=== PATIENT | female | born 1985 | race American Indian/Alaskan Native ===

== ENCOUNTER 2019-04-18 21:14 | Emergency (ER) | payer BC, MEDICAID ==
[~2019-04-18] VITALS: Ht 172.7 cm; Wt 91.0 kg
[2019-04-18] MEDS ORDERED: HYDROCODONE/ACETAMINOPHEN 5/325MG TABLET PO ONE (22:45)
[2019-04-18 23:14] LABS: BASOPHILS % 1.1 % (0.0-2.0); EOSINOPHILS % 2.1 % (0.0-5.0); HEMATOCRIT. 38.7 % (36.0-48.0); HEMOGLOBIN. 12.8 g/dL (12.0-16.0); LYMPHOCYTES % 35.1 % (20.0-50.0); MEAN CORPUSCULAR HEMOGLOBIN 27.4 pg (28.0-32.0); MEAN PLATELET VOLUME 8.6 fl (7.4-10.4); NEUTROPHILS % 55.7 % (40.0-76.0); PLATELET 230 x1000/uL (130-400); RED BLOOD CELL COUNT 4.66 mill/uL (4.2-5.4)
[2019-04-18 23:20] LABS: CHLORIDE 105 mEq/L (98-107)
[2019-04-18 23:21] LABS: CLARITY URINE CLEAR (CLEAR); COLOR URINE YELLOW (YELLOW); KETONES URINE TRACE (NEGATIVE); LEUKOCYTE ESTERASE URINE NEGATIVE (NEGATIVE); NITRITE URINE NEGATIVE (NEGATIVE); OCCULT BLOOD URINE NEGATIVE (NEGATIVE); PH URINE 5.5 (4.5-8.0); PROTEIN URINE NEGATIVE (NEGATIVE); SPECIFIC GRAVITY URINE 1.022 (1.005-1.030); UROBILINOGEN URINE 0.2 E.U./dL (0.2-1.0)
[2019-04-19] MEDS ORDERED: IBUPROFEN 600MG TABLET PO ONE (01:30)
[2019-04-19 01:32] VITALS: BP 130/88
== END 2019-04-19 01:41 | disposition home or self-care (01) ==
LOC: ER 22:00
DX: S39.011A Strain of muscle, fascia and tendon of abdomen, initial encounter (principal); S50.01XA Contusion of right elbow, initial encounter; V43.62XA Car passenger injured in collision with other type car in traffic accident, initial encounter; Y93.9 Activity, unspecified; Y92.410 Unspecified street and highway as the place of occurrence of the external cause; I10 Essential (primary) hypertension
CPT/HCPCS: 36415; 73080; 74176; 80053; 81003; 81025; 83690; 85025; 85610; 99284; Z7610

== ENCOUNTER 2019-10-12 17:57 | Inpatient (IN) | payer MEDICAID ==
[~2019-10-12] VITALS: Ht 172.7 cm; Wt 100.7 kg
[2019-10-12] MEDS ORDERED: nyquil (18:40)
[2019-10-12] MEDS ORDERED: SODIUM CHLORIDE 0.9% 1000ML BAG (SEPSIS BOLUS) IV ONE (22:00)
[2019-10-12 22:53] LABS: BASOPHILS % 0.6 % (0.0-2.0); HEMATOCRIT. 38.3 % (36.0-48.0); HEMOGLOBIN. 12.4 g/dL (12.0-16.0); LYMPHOCYTES % 21.8 % (20.0-50.0); MEAN CORPUSCULAR HEMOGLOBIN 26.7 pg (28.0-32.0); MEAN CORPUSCULAR VOLUME 82.3 fL (81.0-99.0); MEAN PLATELET VOLUME 8.7 fl (7.4-10.4); MONOCYTES % 6.7 % (2.0-8.0); NEUTROPHILS % 70.9 % (40.0-76.0); PLATELET 167 x1000/uL (130-400); RED BLOOD CELL COUNT 4.65 mill/uL (4.2-5.4); RED CELL DISTRIBUTION WIDTH 13.9 % (11.6-14.6)
[2019-10-12 22:54] LABS: CHLORIDE 107 mEq/L (98-107); INR 1.1; PROTHROMBIN TIME 11.6 sec (9.6-11.0)
[2019-10-12] MEDS ORDERED: KETOROLAC 30MG/ML VIAL IV ONE (23:00)
[2019-10-12] MEDS ORDERED: ONDANSETRON HCL 4MG/2ML INJ IV ONE (23:00)
[2019-10-12 23:08] LABS: CLARITY URINE CLOUDY (CLEAR); COLOR URINE YELLOW (YELLOW); KETONES URINE 2+ (NEGATIVE); LEUKOCYTE ESTERASE URINE NEGATIVE (NEGATIVE); NITRITE URINE NEGATIVE (NEGATIVE); OCCULT BLOOD URINE NEGATIVE (NEGATIVE); PROTEIN URINE 2+ (NEGATIVE); SPECIFIC GRAVITY URINE 1.029 (1.005-1.030); UROBILINOGEN URINE 0.2 E.U./dL (0.2-1.0)
[2019-10-12] MEDS ORDERED: ACETAMINOPHEN 650MG/20.3ML UDC PO NR (23:30)
[2019-10-12] MEDS ORDERED: OSELTAMIVIR 75MG CAPSULE PO ONE (23:30)
[2019-10-13] MEDS ORDERED: MORPHINE SULFATE 2 MG/ML CPJ (NOT FOR IM USE) IV ONE (02:30)
[2019-10-13] MEDS ORDERED: POTASSIUM CHLORIDE 20MEQ TABLET SR PO NR (02:30)
[2019-10-13 03:40] VITALS: BP 127/83
[2019-10-13 04:00] VITALS: BP 127/83
[2019-10-13] MEDS ORDERED: IBUP-2029 MT (04:41)
[2019-10-13] MEDS: SODIUM CHLORIDE 0.9% 1,000 ML IV SCH ×2 (06:24→15:39)
[2019-10-13 08:00] VITALS: BP 130/79
[2019-10-13] MEDS ORDERED: LOSA50TA41 PO (08:47)
[2019-10-13] MEDS: GUAIFENESIN-DM 200MG-20MG/10ML UDC PO PRN ×2 (09:07→18:15)
[2019-10-13] MEDS: LOSARTAN POTASSIUM 50 MG TABLET PO SCH (09:20)
[2019-10-13] MEDS: ACETAMINOPHEN 325MG TABLET PO PRN ×2 (11:49→18:12)
[2019-10-13 12:00] VITALS: BP 132/93
[2019-10-13 16:07] VITALS: BP_SYST 119; BP_SYST 132; BP_DIAS 79; BP_DIAS 93
[2019-10-13 20:00] VITALS: BP 122/78
[2019-10-13] MEDS: OSELTAMIVIR 75MG CAPSULE PO SCH (23:22)
[2019-10-14] VITALS: BP 128/78
[2019-10-14 04:00] VITALS: BP 124/71
[2019-10-14] MEDS: SODIUM CHLORIDE 0.9% 1,000 ML IV SCH ×2 (06:56→16:29)
[2019-10-14] MEDS: ACETAMINOPHEN 325MG TABLET PO PRN (06:57)
[2019-10-14] MEDS: GUAIFENESIN-DM 200MG-20MG/10ML UDC PO PRN ×2 (06:57→23:39)
[2019-10-14 07:51] LABS: EOSINOPHILS % 0.3 % (0.0-5.0); HEMATOCRIT. 36.7 % (36.0-48.0); HEMOGLOBIN. 12.1 g/dL (12.0-16.0); LYMPHOCYTES % 45.1 % (20.0-50.0); MEAN CORPUSCULAR HEMOGLOBIN 27.2 pg (28.0-32.0); MEAN CORPUSCULAR VOLUME 82.6 fL (81.0-99.0); MEAN PLATELET VOLUME 8.7 fl (7.4-10.4); MONOCYTES % 7.1 % (2.0-8.0); NEUTROPHILS % 46.5 % (40.0-76.0); PLATELET 158 x1000/uL (130-400); RED BLOOD CELL COUNT 4.44 mill/uL (4.2-5.4); RED CELL DISTRIBUTION WIDTH 14.3 % (11.6-14.6)
[2019-10-14 07:56] LABS: CHLORIDE 110 mEq/L (98-107)
[2019-10-14 08:00] VITALS: BP 125/83
[2019-10-14] MEDS: LOSARTAN POTASSIUM 50 MG TABLET PO SCH (08:36)
[2019-10-14] MEDS ORDERED: OSELTAMIVIR 75MG CAPSULE PO SCH (09:00)
[2019-10-14 12:00] VITALS: BP 100/54
[2019-10-14] MEDS: OSELTAMIVIR 75MG CAPSULE PO SCH ×2 (12:15→23:39)
[2019-10-14 16:00] VITALS: BP 138/79
[2019-10-14] MEDS: ONDANSETRON HCL 4MG/2ML INJ IV PRN (16:23)
[2019-10-14] MEDS: KETOROLAC 30MG/ML VIAL IV SCH ×2 (16:29→23:45)
[2019-10-14 20:00] VITALS: BP 136/90
[2019-10-14] MEDS ORDERED: KETOROLAC 30MG/ML VIAL IV SCH (22:00)
[2019-10-15] VITALS: BP 124/89
[2019-10-15] MEDS: ONDANSETRON HCL 4MG/2ML INJ IV PRN (03:50)
[2019-10-15 04:00] VITALS: BP 133/90
[2019-10-15] MEDS: GUAIFENESIN-DM 200MG-20MG/10ML UDC PO PRN (06:54)
[2019-10-15 08:00] VITALS: BP 125/80
[2019-10-15] MEDS: SODIUM CHLORIDE 0.9% 1,000 ML IV SCH (09:10)
[2019-10-15] MEDS: KETOROLAC 30MG/ML VIAL IV SCH ×2 (09:14→17:30)
[2019-10-15] MEDS: LOSARTAN POTASSIUM 50 MG TABLET PO SCH (09:14)
[2019-10-15] MEDS: OSELTAMIVIR 75MG CAPSULE PO SCH (10:21)
[2019-10-15 12:00] VITALS: BP 121/87
[2019-10-15 16:00] VITALS: BP 122/73
[2019-10-15 19:48] VITALS: BP 122/73
[2019-10-16 08:07] LABS: HIV SCREEN 4G Non Reactive (Non Reactive)
== END 2019-10-15 20:08 | disposition home or self-care (01) | DRG 720 ==
LOC: ER 17:57 → 5WST 10-13 02:25 → EDBEDREQSVC 10-13 02:32 → EDBEDREQ 10-13 02:32 → EDBEDREQTM 10-13 02:32 → ENRESERV 10-13 03:06
PROVIDERS: ADMIT Internal Medicine; ATTEND Internal Medicine
DX: A41.9 Sepsis, unspecified organism (principal); E44.1 Mild protein-calorie malnutrition; E87.6 Hypokalemia; J10.1 Influenza due to other identified influenza virus with other respiratory manifestations; I10 Essential (primary) hypertension; Z79.899 Other long term (current) drug therapy
CPT/HCPCS: 36415; 71045; 80048; 80053; 81003; 83605; 84145; 84484; 85025; 87389; 87804; 93005; 96361; 96374; 96375; 99291; J1885; J2405; J7030

== ENCOUNTER → 2020-05-23 | Outpatient (CLI) | payer MEDICAID ==
[~2020-05-23] MED LIST: ASCO100T12 PO; HYDROMORPHONE HCL/PF 2MG/ML CPJ IV PRN; IBUP-2029 MT; LOSA50TA41 PO; OMEP20TA2 PO
== END | disposition home or self-care (01) ==
LOC: LAB 10:18
PROVIDERS: ATTEND Obstetrics & Gynecology
DX: Z01.818 Encounter for other preprocedural examination (principal); Z11.59 Encounter for screening for other viral diseases
CPT/HCPCS: C9803; U0003

== ENCOUNTER 2020-05-26 06:00 | Day surgery (SDC) | payer MEDICAID ==
[~2020-05-26] VITALS: Ht 172.7 cm; Wt 94.8 kg
[~2020-05-26 06:00] MED LIST changes: -ASCO100T12 PO; -HYDROMORPHONE HCL/PF 2MG/ML CPJ IV PRN; -OMEP20TA2 PO
[2020-05-26 09:34] LABS: BASOPHILS % 1.3 % (0.0-2.0); EOSINOPHILS % 2.3 % (0.0-5.0); HEMATOCRIT. 35.1 % (36.0-48.0); HEMOGLOBIN. 11.5 g/dL (12.0-16.0); LYMPHOCYTES % 31.4 % (20.0-50.0); MEAN CORPUSCULAR HEMOGLOBIN 26.3 pg (28.0-32.0); MEAN CORPUSCULAR VOLUME 80.4 fL (81.0-99.0); MEAN PLATELET VOLUME 8.1 fl (7.4-10.4); MONOCYTES % 5.2 % (2.0-8.0); NEUTROPHILS % 59.8 % (40.0-76.0); PLATELET 259 x1000/uL (130-400); RED BLOOD CELL COUNT 4.37 mill/uL (4.2-5.4); RED CELL DISTRIBUTION WIDTH 14.9 % (11.6-14.6)
[2020-05-26 09:36] LABS: CHLORIDE 108 mEq/L (98-107)
[2020-05-26 09:38] LABS: CLARITY URINE CLEAR (CLEAR); COLOR URINE YELLOW (YELLOW); KETONES URINE NEGATIVE (NEGATIVE); LEUKOCYTE ESTERASE URINE NEGATIVE (NEGATIVE); NITRITE URINE NEGATIVE (NEGATIVE); OCCULT BLOOD URINE NEGATIVE (NEGATIVE); PROTEIN URINE NEGATIVE (NEGATIVE); SPECIFIC GRAVITY URINE 1.017 (1.005-1.030)
[2020-05-26 09:44] LABS: UCG SCREEN NEGATIVE
[2020-05-26 09:51] LABS: PARTIAL THROMBOPLASTIN TIME 27.9 sec (23.4-31.0); PROTHROMBIN TIME 10.3 sec (9.6-11.0)
[2020-05-26] MEDS ORDERED: LACTATED RINGERS 1,000 ML IV SCH (10:00)
[2020-05-26] MEDS ORDERED: BUPIVACAINE HCL/PF 0.5% (5MG/ML) 10ML ONE (11:05)
[2020-05-26] MEDS ORDERED: MIDAZOLAM HCL 2 MG/2 ML VIAL ONE (11:05)
[2020-05-26] MEDS ORDERED: FENTANYL CITRATE/PF 50MCG/ML 2ML VIAL ONE ×2 (11:05)
[2020-05-26] MEDS ORDERED: VASOPRESSIN 20 UNIT/ML 1ML ONE (11:05)
[2020-05-26] MEDS ORDERED: DEXAMETHASONE 4MG/ML 1ML VIAL ONE (11:05)
[2020-05-26] MEDS ORDERED: SUCCINYLCHOLINE CHLORIDE 200MG/10ML IV ONE (11:05)
[2020-05-26] MEDS ORDERED: LIDOCAINE HCL 2% JELLY 5ML ONE (11:05)
[2020-05-26] MEDS ORDERED: NEOSTIGMINE METHYLSULFATE 1MG/ML 10 ML VIAL ONE (11:05)
[2020-05-26] MEDS ORDERED: EPHEDRINE SULFATE 50MG/ML VIAL ONE (11:05)
[2020-05-26] MEDS ORDERED: CEFAZOLIN SODIUM 1000MG/VIAL ONE (11:05)
[2020-05-26] MEDS ORDERED: HYDROMORPHONE HCL/PF 2MG/ML CPJ ONE (11:05)
[2020-05-26] MEDS ORDERED: SKIN ADHESIVE 0.7 GM EA TOP ONE (11:05)
[2020-05-26] MEDS ORDERED: LIDOCAINE HCL/PF 1% 10 MG/ML 5ML VIAL ONE (11:05)
[2020-05-26] MEDS ORDERED: PROPOFOL 200MG/20ML VIAL IV ONE (11:05)
[2020-05-26] MEDS ORDERED: ROCURONIUM BROMIDE 10MG/ML VIAL 5ML IV ONE ×2 (11:05)
[2020-05-26] MEDS ORDERED: GLYCOPYRROLATE 0.2 MG/ML 2ML VIAL ONE (11:05)
[2020-05-26] MEDS ORDERED: OMEP20TA2 PO (12:05)
[2020-05-26] MEDS ORDERED: ASCO100T12 PO (12:05)
[2020-05-26] MEDS: HYDROMORPHONE HCL/PF 2MG/ML CPJ IV PRN ×3 (17:11→17:25)
[2020-05-26] MEDS ORDERED: HYDROCODONE/ACETAMINOPHEN 10/325MG TABLET PO PRN (18:15)
[2020-05-26 19:38] VITALS: BP 146/81
== END 2020-05-26 19:35 | disposition home or self-care (01) ==
LOC: OR 06:00
PROVIDERS: ATTEND Obstetrics & Gynecology
DX: D25.9 Leiomyoma of uterus, unspecified (principal); N92.0 Excessive and frequent menstruation with regular cycle; K21.9 Gastro-esophageal reflux disease without esophagitis; I10 Essential (primary) hypertension; Z79.899 Other long term (current) drug therapy; Z98.890 Other specified postprocedural states; Z88.8 Allergy status to other drugs, medicaments and biological substances; Z82.49 Family history of ischemic heart disease and other diseases of the circulatory system; Z72.89 Other problems related to lifestyle
CPT/HCPCS: 36415; 58546; 80048; 81003; 81025; 85025; 85610; 85730; 86850; 86900; 86901; 88305; J0330; J0690; J1100; J1170; J2250; J2704; J2710; J3010; J3490; S2900

== ENCOUNTER 2020-05-26 23:22 | Emergency (ER) | payer MEDICAID ==
[~2020-05-26] VITALS: Ht 170.2 cm; Wt 75.0 kg
[~2020-05-26 23:22] MED LIST changes: +ASCO100T12 PO; +OMEP20TA2 PO
[2020-05-26] MEDS ORDERED: ONDANSETRON HCL 4MG/2ML INJ IV STA (23:35)
[2020-05-26] MEDS ORDERED: SODIUM CHLORIDE 0.9% 1,000 ML IV ONE (23:35)
[2020-05-26] MEDS ORDERED: FENTANYL CITRATE/PF 50MCG/ML 2ML VIAL IV ONE (23:45)
[2020-05-27 00:54] LABS: HEMATOCRIT. 33.9 % (36.0-48.0); MEAN CORPUSCULAR VOLUME 79.8 fL (81.0-99.0); MEAN PLATELET VOLUME 7.8 fl (7.4-10.4); PLATELET 284 x1000/uL (130-400); RED BLOOD CELL COUNT 4.24 mill/uL (4.2-5.4); RED CELL DISTRIBUTION WIDTH 14.9 % (11.6-14.6)
[2020-05-27 00:57] LABS: CHLORIDE 105 mEq/L (98-107)
[2020-05-27 02:01] LABS: PLATELET ESTIMATE NORMAL
[2020-05-27] MEDS ORDERED: MIDAZOLAM HCL 2 MG/2 ML VIAL IV ONE (02:45)
[2020-05-27 06:30] VITALS: BP 126/84
== END 2020-05-27 07:00 | disposition home or self-care (01) ==
LOC: ER 23:22
DX: G89.18 Other acute postprocedural pain (principal); R10.84 Generalized abdominal pain; Z98.890 Other specified postprocedural states; Z79.899 Other long term (current) drug therapy
CPT/HCPCS: 36415; 80053; 83690; 85025; 93005; 96361; 96374; 96375; 99285; J2250; J2405; J3010; J7030

== ENCOUNTER 2021-06-12 11:06 | Emergency (ER) | payer MEDICAID ==
[~2021-06-12] VITALS: Ht 172.7 cm; Wt 100.0 kg
[2021-06-12 12:33] LABS: BASOPHILS % 0.9 % (0.0-2.0); EOSINOPHILS % 1.9 % (0.0-5.0); HEMATOCRIT. 32.8 % (36.0-48.0); HEMOGLOBIN. 10.8 g/dL (12.0-16.0); LYMPHOCYTES % 25.4 % (20.0-50.0); MEAN CORPUSCULAR VOLUME 76.4 fL (81.0-99.0); MEAN PLATELET VOLUME 7.8 fl (7.4-10.4); MONOCYTES % 5.7 % (2.0-8.0); NEUTROPHILS % 66.1 % (40.0-76.0); PLATELET 286 x1000/uL (130-400); RED CELL DISTRIBUTION WIDTH 17.5 % (11.6-14.6)
[2021-06-12 12:35] LABS: CLARITY URINE CLEAR (CLEAR); COLOR URINE YELLOW (YELLOW); KETONES URINE NEGATIVE (NEGATIVE); LEUKOCYTE ESTERASE URINE NEGATIVE (NEGATIVE); NITRITE URINE NEGATIVE (NEGATIVE); OCCULT BLOOD URINE NEGATIVE (NEGATIVE); PROTEIN URINE NEGATIVE (NEGATIVE); SPECIFIC GRAVITY URINE 1.007 (1.005-1.030); UROBILINOGEN URINE 0.2 E.U./dL (0.2-1.0)
[2021-06-12 12:41] LABS: CHLORIDE 109 mEq/L (98-107)
[2021-06-12 13:04] LABS: B-HCG QUANTITATIVE 13966 mIU/mL (<3)
[2021-06-12 15:30] VITALS: BP 134/78
== END 2021-06-12 15:30 | disposition home or self-care (01) ==
LOC: ER 11:06
DX: O20.0 Threatened abortion (principal); Z3A.01 Less than 8 weeks gestation of pregnancy
CPT/HCPCS: 36415; 76801; 80053; 81003; 81025; 84702; 85025; 86850; 86900; 99284